=== PATIENT | male | born 1980 | race Two or more races ===

== ENCOUNTER 2020-11-01 21:00 | Emergency (ER) | payer OTHER, SELFPAY ==
[2020-11-01 21:02] VITALS: BP 154/90; PULSE 73; RESP 18; TEMP 37.1; O2SAT 99; BMI 27.3
--- NOTE | 2020-11-01 21:15 | HMH.EDSKAF ---
ED Disposition Clinical Impression: Cellulitis and abscess of lower extremity Disposition: Home, Self-Care Condition on Discharge: Good Instructions: DI for Cellulitis -- Adult Additional Instructions: use meds and keep clean and see pcp for follow up Prescriptions: Sulfamethoxazole/Trimethoprim [Bactrim DS tablet] 1 each PO BID #14 tab Transmission Status: Pending to [id number] cephALEXin [cephALEXin 500mg capsule*] 500 mg PO TID #30 cap Transmission Status: Pending to [id number] Referrals: Provider,Referral, [Primary Care Provider] - - Critical Care Critical Care Time: No Attestation: On 11/01/20, the high probability of a clinically significant, sudden or life threatening deterioration of the following system(s) required my full and direct attention, intervention and personal management. The time I documented below is in addition to time spent performing reported procedures but includes the following listed in this critical care notation. Medical Decision Making - Medical Records Medical records reviewed: Yes: I reviewed the patient's medical records. - Garth Inquiry Pt receiving controlled substance: No Vital Signs: 11/01/20 21:02 Temperature 98.7 F Temperature Source Oral Pulse Rate [Right] 73 Respiratory Rate 18 Blood Pressure [Right Arm] 154/90 H Blood Pressure Mean [Right Arm] 111 02 Sat by Pulse Oximetry 99 Medical Decision Narrative: early cellulitis w/o abscess or necrosis Skin/Abscess/FB HPI - General Chief complaint: Wound/Laceration Stated complaint: spider bite left thigh Time Seen by Provider: 11/01/20 21:15 Mode of Arrival: Ambulatory Source of Information: Patient, Medical Record Limitations: No Limitations Description of Symptoms (Recalled from ER Triage Doc. by RN): pt states was biten by spider yesterday on lt thigh. lt thigh has reddened area with drainage - History of Present Illness HPI narrative: reported spider bite lt thigh yesterday complaint: insect bite/sting Onset (ago): day(s) Tetanus up to date: unsure Location: LLE Severity: moderate Associated symptoms: denies other symptoms Treatments prior to arrival: none - Related Data Previous Rx's Medication Instructions Recorded Sulfamethoxazole/Trimethoprim 1 each PO BID #14 tab 11/01/20 [Bactrim DS tablet] cephALEXin [cephALEXin 500mg 500 mg PO TID #30 cap 11/01/20 capsule*] Allergies Allergy/AdvReac Type Severity Reaction Status Date / Time No Known Allergies Allergy Verified 11/01/20 21:15 [facility] History - Hepatitis A Screen Drug use history?: No High risk sexual behaviors?: No History of sexually transmitted infection?: No Currently employed?: No Childcare worker?: No Do you have indoor plumbing?: Yes Do you have electricity?: Yes Attestation statement:: This patient has been screened for Hepatitis A risk factors. I have reviewed the patient's past medical history: Yes - Social History Alcohol Intake: never Occupational Status: employed ROS Obtained: Yes All systems reviewed & no additional complaints - Constitutional Constitutional: Denies fever(s) - Eyes Eyes: Denies change in vision - ENT Ears, Nose, Mouth, and Throat: Denies sore throat - Cardiovascular Cardiovascular: Denies chest pain - Respiratory Respiratory: Denies shortness of breath - Gastrointestinal Gastrointestingal: Denies: abdominal pain - Genitourinary Male Genitourinary: Denies hematuria - Musculoskeletal Musculoskeletal: Denies joint pain - Integumentary/Breasts Skin/Breast: Reports as per HPI, Reports other (small bite lt thigh - no abscess ) - Neurologic Neurologic: Denies seizure-like activity Physical Exam - General General appearance: alert - Head Head exam: normocephalic - Eye Eye exam: Present: PERRL, EOMI - ENT ENT exam: Present: mucous membranes moist - Neck Neck exam: Present: trachea midline - Respiratory Re
[2020-11-01 21:26] VITALS: BP 151/87; PULSE 70; RESP 16; TEMP 37; O2SAT 98
== END 2020-11-01 21:27 | disposition home or self-care (01) ==
PROVIDERS: Emergency Provider Emergency Medicine
DX: L03.116 Cellulitis of left lower limb (principal); T63.301A Toxic effect of unspecified spider venom, accidental (unintentional), initial encounter
CPT/HCPCS: 87070; 87077; 87186; 87205; 99281